=== PATIENT | male | born 1980 | race Caucasian/White ===

== ENCOUNTER → 2016-04-28 | Outpatient (CLI) | payer OTHER ==
[~2016-04-28] VITALS: Ht 177.8 cm; Wt 69.9 kg
[~2016-04-28] MED LIST: ALEVE220 MG PO; ASPIRIN325 PO; BENADRYL25 MG PO; CALCIUM PO; DEPAKOTE500 MG PO; FLORINEF ACETA0.1 MG PO; FOLIC ACID-VIT1 EAC1 PO; HYDROCODON-ACE1 EAC4 PO; HYDROCODONE-AP1 EAC1 PO; HYDROCODONE-AP1 EAC6 PO; LIDOCAINE VISC100 M1 MM; MAG OXIDE PO; MORPHINE SULFAT15 M3 PO; MS CONTIN15 MG PO; MS CONTIN30 MG PO; OXYCODONE-ACET1 EACH PO; PERCOCET 5-3251 EACH PO; PERCOCET PO; PLAVIX 75 MG TA75 MG PO; PROCHLORPER PO; PROPRANOLOL 8080 M1 PO; REMERON15 MG PO; ROXICODONE5 MG PO; SIMVASTATIN20 MG PO; TOPAMAX100 MG PO; TRAZODONE HCL50 MG PO; VITAMIN D2000 UNIT PO
--- NOTE | ~2016-04-28 | HPC ---
[facility] [place] [address] PAIN MANAGEMENT CONSULTATION Name: MARYLINALLENVaughnNIRAV Room #: [facility] [id number] Admission: 04/28/16 Attend Phys: Thomas Azar DO Discharge: Date of : 80 Report #: [id number] THIS REPORT FOR: //name// CC: Thomas Blake DATE OF SERVICE: 04/28/2016 REFERRING PHYSICIAN: Armand Garcia M.D. CHIEF COMPLAINT: Headache and head pain. 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 The patient indicates the pain typically runs around 7/10. He has been stabilized on a dose of medication, but returns today for alteration in therapy due to CDC guidelines changes. He has returned to address ongoing medication therapy. He is denying any side effects of medication, feels medications are beneficial. He wishes to continue therapy as closely to the guidelines as we can obtain. ALLERGIES: IV CONTRAST AGENT. CURRENT MEDICATIONS: Trazodone, oxycodone, MS Contin, cholecalciferol, calcium carbonate, cyanocobalamin, mirtazapine, aspirin, topiramate and simvastatin. SOCIAL HISTORY: The patient continues to smoke. Denies IV or illicit drug use. Uses alcohol daily. He is accompanied by his father. IMAGING DATA: No new imaging available. PHYSICAL EXAMINATION: VITAL SIGNS: Blood pressure 103/77, pulse is 97 and respiratory rate 14 and unlabored. The patient is 100% on room air. Height 5 feet 10 inches tall, weight 154 pounds and BMI calculated 21.1. GENERAL: Well-developed, well-nourished, well-hydrated 35-year-old male appearing stated age. He is placing pain score today is 7/10. HEENT: Normocephalic and atraumatic. Pupils equal, round and reactive to light. Extraocular muscles are intact. Speech is fluent. Dentition poor. EXTREMITIES: Show no clubbing, no cyanosis and no edema. MUSCULOSKELETAL: Palpatory tenderness noted over the temporal area bilaterally, right greater than left. Cervical provocation testing causes no change in overall pain. ASSESSMENT: [address] [address] PAIN MANAGEMENT CONSULTATION Name: NIRAV ROBLEDO Room #: [facility] Molly#: [id number] Admission: 04/28/16 Attend Phys: Thomas Azar DO Discharge: Date of : 80 Report #: [id number] 1. Chronic headaches. 2. Seizure disorder. 3. Opioid dependency. 4. Complicated medical therapy utilizing scheduled medications. 5. Chronic intractable pain. PLAN: 1. The patient returns today in followup visit where we have discussed the need to reduce his opioids to me through CDC guidelines. CDC guidelines recommend 90 morphine equivalents a day for any person receiving high-dose opioids, this is the extent of the medication. I have discussed this with the patient today. Currently, the patient is taking approximately 135 mg morphine equivalents a day that is with the MS Contin and oxycodone. We will adjust the medications to some degree to reduce the patient's opioid use to comply with CDC guidelines. 2. The patient was provided a script and MS Contin 30 mg dose 1 tab p.o. b.i.d., total of 60 mg morphine equivalents. To this, we will add the oxycodone. We will trial this for 1 month and if the patient is doing well with this therapy, we will continue therapy at this level. Otherwise, we will look towards placing the patient on either Embeda or Silvia once a day, morphine dose in the morning, which will provide 24-hour coverage. We will determine if this is necessary at next visit. 3. The patient was provided prescription of oxycodone 5 mg dose 1 to 2 tabs every 8 hours p.r.n., given #180, releases of today only. We will see the patient back for followup visit in 1 month to discuss efficacy of the change. We have now reached the CDC guidelines of 90 morphine equivalents a day with the patient's medications. 4. If the patient finds this medication dosing change tolerable and he is having no side effects and pain is well controlled, we can provide the patient with refills of medications at our next visit. He will contact us to advise as whether or not this plan is effective. By: [id number] Thomas Azar DO /nt
== END ==
LOC: PAIN 07:02
DX: R51 Headache (principal); G40.909 Epilepsy, unspecified, not intractable, without status epilepticus; F11.20 Opioid dependence, uncomplicated; F17.210 Nicotine dependence, cigarettes, uncomplicated; I10 Essential (primary) hypertension; Z79.82 Long term (current) use of aspirin

== ENCOUNTER → 2016-05-27 | Outpatient (CLI) | payer OTHER ==
[~2016-05-27] VITALS: Ht 177.8 cm; Wt 71.2 kg
--- NOTE | ~2016-05-27 | HPC ---
[facility] [place] [address] [place] [address] PAIN MANAGEMENT CONSULTATION Name: NIRAV ROBLEDO Lesley [facility] #[facility] [id number] Admission: 05/27/16 Attend Phys: Thomas Azar DO Discharge: Date of : 80 Report #: [id number] THIS REPORT FOR: //name// CC: Thomas Blake MD DATE OF SERVICE: 05/27/2016 REFERRING PHYSICIAN: Armand Garcia MD. CHIEF COMPLAINT: Headache and head pain. 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 The patient typically has pain rating anywhere from 5-7/10. He returns today in followup visit for continuation of medication therapy. We have adjusted his medications to comply with CDC guidelines. He is now below 90 morphine equivalents a day. His pain is fairly well controlled. He is relying more on his oxycodone now, that we have reduced his MS Contin, but still remains in the 90 morphine equivalent range. He returns today requesting refills on medication for the next 3 months. ALLERGIES: IV CONTRAST AGENT. CURRENT MEDICATIONS: Oxycodone 10 mg 3 times a day, MS Contin 30 mg twice a day, trazodone 50 mg p.o. at bedtime, Remeron 15 mg p.o. at bedtime, aspirin 325 mg per day, Topamax 200 mg once a day, simvastatin 20 mg once a day. SOCIAL HISTORY: The patient continues to smoke. He denies any IV or illicit drug use. He uses daily alcohol. He is accompanied by his father. IMAGING: No new imaging available. PHYSICAL EXAMINATION: VITAL SIGNS: Blood pressure 123/74, pulse 83, respiratory rate 14, unlabored. The patient is 100% on room air, height 5 feet 10 inches tall, weight 157 pounds, BMI calculated 22.5. GENERAL: Well developed, well nourished, and well hydrated. A 35-year-old male, appears stated age, placing current pain score at 5/10. HEENT: Normocephalic and atraumatic. Pupils are equal, round, and reactive. Dentition poor. Speech is fluent. NEUROLOGIC: Cranial nerves are grossly intact. EXTREMITIES: Show no clubbing, no cyanosis, no edema. MUSCULOSKELETAL: The patient has some tenderness to palpation over the temporal [facility] [address] [place] [address] PAIN MANAGEMENT CONSULTATION Name: NIRAV ROBLEDO Lesley Room #: [facility]#: [id number] Admission: 05/27/16 Attend Phys: Thomas Azar DO Discharge: Date of : 80 Report #: [id number] regions, right greater than left. There is a noted well-healed surgical scar. Cervical provocation testing causes no change in overall pain. ASSESSMENT: 1. Chronic headaches. 2. Seizure disorder. 3. Opioid dependency. 4. Complicated medical therapy utilizing scheduled medications. 5. Chronic intractable pain. PLAN: 1. The patient returns today in followup visit for medication management. He feels medications are working beneficially even with the slight reduction in therapy over the last month. He has requested refills on medication to be provided for 3 months' worth of therapy. He is denying any side effects to medication. He does note he has relied more heavily on his oxycodone, but still remains with the level of dosing that we have provided. He returns today for refills of medication. 2. The patient was provided a prescription of MS Contin 30 mg dose 1 tab p.o. b.i.d. I have given the patient #60, releases of today, 4 weeks from today, and 8 weeks from today, 3 months' worth of medication. 3. The patient was provided a prescription of oxycodone 5 mg dose 1-2 tabs p.o. q. 8 hours p.r.n., #180 releases of today, 4 weeks from today, and 8 weeks from today. 4. The patient will return to our clinic in 3 months for medication management. Otherwise, earlier if he needs to make adjustments in therapy. By: [id number] Thomas Azar DO /nt
[2016-05-27 08:23] VITALS: BP 123/74
== END | disposition home or self-care (01) ==
LOC: PAIN 06:44
DX: R51 Headache (principal); G89.29 Other chronic pain; G40.909 Epilepsy, unspecified, not intractable, without status epilepticus; F11.20 Opioid dependence, uncomplicated; F17.210 Nicotine dependence, cigarettes, uncomplicated

== ENCOUNTER → 2016-09-22 | Outpatient (CLI) | payer OTHER ==
[~2016-09-22] VITALS: Ht 177.8 cm; Wt 67.1 kg
--- NOTE | ~2016-09-22 | HPC ---
[facility] [address] [place] [address] PAIN MANAGEMENT CONSULTATION Name: NIRAV ROBLEDO Room #: REG [facility]#: [id number] Admission: 09/22/16 Attend Phys: Thomas Azar DO Discharge: Date of : 80 Report #: [id number] THIS REPORT FOR: //name// CC: Thomas Blake MD DATE OF SERVICE: 09/22/2016 DATE OF SERVICE: 09/22/2016 CHIEF COMPLAINT: Head pain and headache. HISTORY OF PRESENT ILLNESS: As you know, the patient is a 36-year-old male referred to our service by his neurosurgeon, Dr. Armand Garcia for evaluation for headache pain secondary to variable intracranial treatable spinal fluid pressures. The patient indicates pain today at the level of 4/10. States that light noise weather exacerbate symptoms; medications, cold environment and dark environments and sleep appear to improve pain. He returns today in followup visit for medication management. Currently, he is taking MS Contin 30 mg twice a day, total of 60 mg morphine equivalents and taking oxycodone 10 mg 3 times a day, a total of 45 morphine equivalents equalling 105 morphine equivalents per day. He returns today for adjustment in his medications to comply with CDC 90 morphine equivalents maximum. ALLERGIES: IV CONTRAST AGENT. CURRENT MEDICATIONS: Oxycodone 10 mg 3 times a day, MS Contin 30 mg twice day, trazodone 50 mg p.o. at bedtime, Remeron 15 mg p.o. at bedtime, aspirin 325 mg per day, Topamax 200 mg once a day, simvastatin 20 mg once a day. SOCIAL HISTORY: The patient continues to smoke. Denies IV or illicit drug use. Denies any chronic alcohol use. He is accompanied by his father present in room today. IMAGING: No new imaging available. PHYSICAL EXAMINATION: VITAL SIGNS: Blood pressure 115/81, pulse 86, respiratory rate 14, unlabored. The patient is 100% on room air, height 5 feet 10 inches tall, weight 148 pounds, BMI calculated 21.2. GENERAL: Well developed, well nourished, well hydrated 36-year-old male, appearing his stated age. Pain is rated around 4/10. HEENT: Normocephalic, atraumatic. Pupils equal, round, reactive to light. Dentition is poor, but noted new dentures. [address] [address] PAIN MANAGEMENT CONSULTATION Name: MEENANIRAV Room #: REG [facility]#: [id number] Admission: 09/22/16 Attend Phys: Thomas Azar DO Discharge: Date of : 80 Report #: [id number] EXTREMITIES: Show no clubbing, no cyanosis, no edema. MUSCULOSKELETAL: Tenderness to palpation is again noted over the paraspinal musculature of the cervical region. No spinous process tenderness. Well-healed surgical scar over the calvarium. ASSESSMENT: 1. Chronic headaches. 2. Seizure disorder. 3. Opioid dependency. 4. Complicated medical therapy utilizing scheduled medications. 5. Chronic intractable pain. PLAN: 1. The patient returns today in followup visit for adjustments in medication therapy. The patient returns today to comply with CDC guidelines of 90 morphine equivalents of medicine per day. The patient is currently at 105 morphine equivalence and we need to adjust downward to comply with new CDC regulations. The patient denies any new changes in his medical history over the past 3 months. He has been doing fairly well. He does typically good in the summer time and has been noted to be doing fairly well today. He returns today for the adjustments in therapy. 2. The patient was provided prescription MS Contin 30 mg dose 1 tab p.o. b.i.d., given the patient #60 tablets, releases of today, 4 weeks from today, 8 weeks from today, 3 months' worth of medication. 3. The patient will have reduction in his oxycodone, reducing to 5 mg 4 times a day. This will give 120 tablets of the 5 mg oxycodone dose. He is to take this only when pain is intolerable. I have given him releases of today, 4 weeks from today, 8 weeks from today. The combination of the oxycodone with the MS Contin equals less than the 90 morphine equivalents required by new CDC guidelines complying with their request. 4. We will see the patient back in followup visit in 3 months, make further adjustments in medication therapy if necessary and to review efficacy of treatment. <ELECTRONICALLY SIGNED> By: Thomas Azar DO 09/28/16 0804 [id number] Thomas Azar DO /nt
[2016-09-22 08:21] VITALS: BP 115/81
== END ==
LOC: PAIN 07:10
DX: G89.29 Other chronic pain (principal); G44.89 Other headache syndrome; F11.20 Opioid dependence, uncomplicated; Z91.09 Other allergy status, other than to drugs and biological substances; Z79.82 Long term (current) use of aspirin; F17.210 Nicotine dependence, cigarettes, uncomplicated

== ENCOUNTER → 2017-05-04 | Outpatient (CLI) | payer OTHER ==
[~2017-05-04] VITALS: Ht 177.8 cm; Wt 62.5 kg
--- NOTE | ~2017-05-04 | HPC ---
[facility] [place] [address] [place] [address] PAIN MANAGEMENT CONSULTATION Name: NIRAV ROBLEDO Room #: REG [facility].#: [id number] Admission: 05/04/17 Attend Phys: Thomas Azar DO Discharge: Date of : 80 Report #: [id number] THIS REPORT FOR: //name// CC: Thomas Blake DATE OF SERVICE: 05/04/2017 CHIEF COMPLAINT: Head pain and headache. HISTORY OF PRESENT ILLNESS: As you know, the patient is a 36-year-old male referred to our service by his neurosurgeon, Dr. Armand Garcia for chronic headaches secondary to variable intracranial pressures. The patient has been started on medication in the form of opioid therapy. He takes MS Contin 30 mg twice a day and oxycodone 5 mg up to 3 times a day for pain control. He states this is working well despite the elevated pain score of 4-5/10. He indicates that light noise and weather changes exacerbate symptoms. Dark environment, quiet environment, sleep and medication appear to improve pain. He returns today requesting refill on medications. He is denying new injury, new trauma or any changes in medical history since our last visit. ALLERGIES: IV CONTRAST AGENT. CURRENT MEDICATIONS: MS Contin 30 mg twice a day, oxycodone 5 mg 3 times a day, trazodone 50 mg p.o. at bedtime, Remeron 15 mg p.o. at bedtime, aspirin 325 mg per day, Topamax 200 mg once a day, simvastatin 20 mg per day. SOCIAL HISTORY: The patient denies smoking. Denies IV or illicit drug use. Denies any chronic alcohol use. He is accompanied by his mother who was present in room today. IMAGING: No new imaging available. PQRS: The patient has no known osteoarthritis or rheumatoid arthritis. He is reporting pain intensity somewhere between 4-5/10. He is not a fall risk, has not had a fall in last 3 months. He does report no dizziness at appointment today. He is not on blood thinners. He is treated for hypertension with medication. He has been on opioids longer than 6 weeks and he has contracted to [facility]. He has a low risk for opioid abuse. He rates his pain impact score as 36/70. PHYSICAL EXAMINATION: VITAL SIGNS: Blood pressure 114/78, pulse 103, respiratory rate 14, unlabored. The patient is 98% on room air. Height 5 feet 10 inches tall, weight 137.[address] [place] [address] PAIN MANAGEMENT CONSULTATION Name: NIRAV ROBLEDO Room #: REG [facility].#: [id number] Admission: 05/04/17 Attend Phys: Thomas Azar DO Discharge: Date of : 80 Report #: [id number] pounds, BMI calculated 19.8. GENERAL: Well-developed, well-nourished, well-hydrated, thin 36-year-old male who appears his stated age. He is placing current pain score 4-5/10. HEENT: Normocephalic, atraumatic. Pupils are equal, round, reactive to light. Dentition remains poor. EXTREMITIES: Show no clubbing, no cyanosis, no edema. MUSCULOSKELETAL: The patient does have some tenderness to palpation over the cervical region. No specific trigger points, no spinous process tenderness. Well-healed surgical scars over the calvarium. Cervical provocation testing causes no joint change in overall pain. ASSESSMENT: 1. Chronic headaches. 2. Seizure disorder. 3. Opioid dependency. 4. Complicated medical therapy utilizing scheduled medications. 5. Chronic intractable pain. PLAN: 1. The patient has returned today in followup visit for medication management. We have had long discussions in the past about the use of opioids for headache pain. This appears to be working well in this patient's case. He states that his neurosurgeon, Dr. Garcia has indicated that no surgical option at present will improve his symptoms and that he recommends continuing therapy. We did discuss with the patient the CDCs recommended guidelines for remaining under the 90 morphine equivalents total per day. At present, he is taking approximately 80 morphine equivalents a day total. We did discuss the possibility that this may reduce further in the very near future as there has been suggestion of a reduction from 90 morphine equivalents a day to 50 morphine equivalents a day. We will discuss this at our next visit if this does become a reality. At present, the patient appears to be doing well. He is denying side effects to medication and wishes to continue therapy. The patient's improvement is agreed upon by his mother who is present in room today, indicating that his function is greatly improved while on medication. 2. The patient was provided prescription MS Contin 30 mg dose 1 tab p.o. b.i.d., #60, releases of today, 4 weeks from today, 8 weeks from today, 3 months' worth of medication. 3. The patient was provided prescription of oxycodone 5 mg dose 1 tab p.o. q.i.d., #120, releases of today, 4 weeks from today, 8 weeks from today, 3 months' worth of medication. I have advised the patient to begin reduction of the use of this medication if at all possible. This immediate release formulation needs to be weaned lower over the next couple of months in preparation for reduction in overall opioid usage. 4. The patient will submit to a drug screen today. Drug screening is part of our process of confirming the patient is utilizing medication appropriately. The patient will submit to this today. He has also renewed his contract for [facility] [address] [place] [address] PAIN MANAGEMENT CONSULTATION Name: MARYLINALLENVaughnNIRAV Room #: REG [facility] Tatyana.#: [id number] Admission: 05/04/17 Attend Phys: Thomas Azar DO Discharge: Date of : 80 Report #: [id number] opioids with [facility]. 5. We will see the patient back in followup visit in 3 months, make adjustments in medication as necessary. <ELECTRONICALLY SIGNED> By: Thomas Azar DO 05/05/17 0736 [id number] Thomas Azar DO /nt
[2017-05-04 09:39] VITALS: BP 114/78
== END ==
LOC: PAIN 07:34
DX: G89.4 Chronic pain syndrome (principal); R56.9 Unspecified convulsions; Z79.891 Long term (current) use of opiate analgesic

== ENCOUNTER → 2017-08-04 | Outpatient (CLI) | payer OTHER ==
[~2017-08-04] VITALS: Ht 177.8 cm; Wt 62.6 kg
--- NOTE | ~2017-08-04 | HPC ---
[facility] [place] [address] [place] [address] PAIN MANAGEMENT CONSULTATION Name: NIRAV ROBLEDO Room #: REG [facility] MDenise.#: [id number] Admission: 08/04/17 Attend Phys: Thomas Azar DO Discharge: Date of : 80 Report #: [id number] THIS REPORT FOR: //name// CC: Thomas Blake DATE OF SERVICE: 08/04/2017 REFERRING PHYSICIAN: Armand Garcia MD CHIEF COMPLAINT: Headache secondary to variable intracranial pressures. HISTORY OF PRESENT ILLNESS: As you know, the patient is a 37-year-old male with longstanding history of headache and head pain due to variable intracranial pressures. The patient is seen by Dr. Armand Garcia and adjustments were made in the patient's ventriculoperitoneal shunt periodically to alleviate symptoms. He returns today in followup visit for medication management. He has been utilizing MS Contin twice a day, utilizing oxycodone p.r.n. for pain control and states his medications are working beneficially. He returns today in followup visit to review recent urine drug screen and to discuss continuation of medication therapy. The patient denies any side effects of somnolence, decreased mental acuity, disorientation, confusion with therapy. He is placing pain score no greater than 4-5/10 today. ALLERGIES: IV CONTRAST AGENT. CURRENT MEDICATIONS: MS Contin 30 mg twice a day, oxycodone 5 mg 3 times a day, trazodone 50 mg p.o. at bedtime, Remeron 15 mg p.o. at bedtime, aspirin 325 mg per day, Topamax 200 mg once a day, and simvastatin 20 mg per day. SOCIAL HISTORY: The patient denies smoking. Denies IV or illicit drug use. Denies any chronic alcohol use. He is accompanied by his father who is present in room today. PQRS: The patient has no osteoarthritis or rheumatoid arthritis. He is reporting pain around 4-5/10. He is not a fall risk, has not had a fall in the last 3 months. He does report some dizziness and disorientation periodically. He is not treated with anticoagulant. He is treated for hypertension. He has been on opioids for greater than 6 weeks and under contract with [facility]. His risk for opioid abuse is low to medium. PHYSICAL EXAMINATION: GENERAL: Well-developed, well-nourished, well-hydrated, thin 37-year-old male, appears older than stated age, placing current pain score 4-5/10. HEENT: Normocephalic, atraumatic. Pupils are equal, round, reactive to light. [address] [address] PAIN MANAGEMENT CONSULTATION Name: MEENANIRAV MELANI Room #: REG [facility].#: [id number] Admission: 08/04/17 Attend Phys: Thomas Azar DO Discharge: Date of : 80 Report #: [id number] Extraocular muscles are intact. Speech fluent. NEUROLOGIC: Cranial nerves 2-12 grossly intact. Dentition is poor. EXTREMITIES: Show no clubbing, no cyanosis, and no edema. MUSCULOSKELETAL: The patient does have some tenderness to palpation over the cervical and occiput area, no spinous process tenderness. Well-healed surgical scars over the calvarium due to changes in shunt placement. Cervical provocation testing is met with only increasing pain with rotation and extension. ASSESSMENT: 1. Chronic headache. 2. Seizure disorder. 3. Opioid dependency. 4. Complicated medical therapy utilizing scheduled medications. 5. Chronic intractable pain. PLAN: 1. The patient returns today in followup visit requesting refill on medications. He states the medications are working beneficially for pain control. The patient and I did spend some time today reviewing his recent drug screen, it shows positive for morphine and morphine metabolite, shows negative for oxycodone. The patient indicates that he continues to take his oxycodone on an as needed basis per our direction. He indicates that there are times when he does not take any oxycodone for days at a time, this may be the reason why his urine drug screen is negative at this time, we will give the patient benefit of the doubt, but I have advised the patient that if he shows negative for medications written for his ongoing pain issues at our next visit that changes will be necessary. We have encouraged the patient to utilize the oxycodone on an as needed basis, but if it is not necessary, we would like to discontinue its use. 2. The patient was provided a prescription of MS Contin 30 mg dose 1 tab p.o. b.i.d., total of 60 morphine equivalents a day. I advised the patient to take the medication as directed. I have given him release dates of today, 4 weeks from today, 8 weeks from today, 3 months' worth of medication. I have cautioned the patient as well as his father in the room today to take this appropriately, they are monitoring the patient's use, both his mother and father. 3. The patient was provided a prescription of oxycodone 5 mg dose 1 tab p.o. q.6-8 hours p.r.n. for pain, I have given the patient #120, I advised him to take the medication as necessary, he is not to take the medication prophylactically. He was given #120, release dates of today, 4 weeks from today, 8 weeks from today. The patient was advised a total medication at 20 mg equals at 30 mg morphine equivalents, a total of 90 morphine equivalents maximum he can receive based on recent CDC guidelines. We will adjust his medications at followup visit. [facility] [address] [place] [address] PAIN MANAGEMENT CONSULTATION Name: NIRAV ROBLEDO Room #: REG [facility] Tatyana.#: [id number] Admission: 08/04/17 Attend Phys: Thomas Azar DO Discharge: Date of : 80 Report #: [id number] 4. We will see the patient back in followup visit 3 months from today for ongoing medication management. By: [id number] Thomas Azar DO /nt
[2017-08-04 08:13] VITALS: BP 117/82
== END ==
LOC: PAIN 06:57
DX: G40.909 Epilepsy, unspecified, not intractable, without status epilepticus (principal); G89.4 Chronic pain syndrome; R51 Headache; F11.20 Opioid dependence, uncomplicated; Z79.899 Other long term (current) drug therapy

== ENCOUNTER → 2017-11-17 | Outpatient (CLI) | payer OTHER ==
[~2017-11-17] VITALS: Ht 177.8 cm; Wt 61.2 kg
--- NOTE | ~2017-11-17 | HPC ---
[facility] [place] [address] PAIN MANAGEMENT CONSULTATION Name: MEENANIRAV POLO Room #: REG [facility].#: [id number] Admission: 11/17/17 Attend Phys: Idalmis Gamez Discharge: Date of : 80 Report #: [id number] THIS REPORT FOR: //name// CC: Idalmis Gamez Virgilio Blake DATE OF SERVICE: 11/17/2017 CHIEF COMPLAINT: Headache secondary to variable intracranial pressures. HISTORY OF PRESENT ILLNESS: As you know, this 37-year-old male with longstanding history of headaches and head pain due to intracranial pressures. The patient was seen by Dr. Armand Garcia in the past for his ventriculoperitoneal shunt. He returns today for medical management. States that he has morning headaches daily that get better as the day progresses. It is a dull achy pain that is sensitive to light, noise, weather changes and improves with his medication, a dark environment or sleep. He uses his medication daily, and they say that they work effectively. He returns for a followup visit today. He states no side effects from his medicine such as constipation or daytime somnolence, decreased mental acuity. He places his pain today at 3/10. ALLERGIES: IV CONTRAST DYE. MEDICATIONS: Oxycodone 5 mg, morphine sulfate 30 mg, trazodone 100 mg, aspirin 325, Topamax 100 mg 2 tablets at bedtime, simvastatin 20 mg. SOCIAL HISTORY: The patient denies smoking on a daily basis. He tells me one cigarette about every 6 weeks. For alcohol use, he tells me he takes about 3 shots of alcohol about every 2 weeks and no illicit drug use. He is accompanied today by his father who he spends most of his time with. PQRS: The patient's height 5 feet 10 inches, weight 135, BMI 19.4. VITAL SIGNS: Blood pressure is 104/70, pulse 95, respirations 16, oxygen is 96%. No history of osteoarthritis or rheumatoid arthritis. Again, his pain score today is 3/10. He is not a fall risk. He does not need help with walking or standing and has not fallen in the last 3 months with no dizziness. The patient is on no blood thinners and denies a history of hypertension. He does have opioid agreement since he has been on opioid therapy longer than 6 weeks. His risk assessment tool is low. His functional assessment is 41/70. Again, no recreational drug use. Very rare tobacco use and alcohol use every 2-4 weeks per the patient. [address] [address] PAIN MANAGEMENT CONSULTATION Name: NIRAV ROBLEDO Room #: REG [facility]#: [id number] Admission: 11/17/17 Attend Phys: Idalmis Gamez Discharge: Date of : 80 Report #: [id number] PHYSICAL EXAMINATION: GENERAL: Well-developed, well-nourished 37-year-old male who appears his stated age. HEENT: Normocephalic, atraumatic. Pupils equal, reactive to light. Speech is fluent. Extraocular muscles intact. NEUROLOGICAL: Cranial nerves 2-12 intact. EXTREMITIES: No clubbing, no cyanosis, no edema noted. MUSCULOSKELETAL: Does have tenderness over the occipital areas. He does have a well-healed surgical scar. ASSESSMENT: 1. Chronic headaches. 2. Seizure disorder. 3. Opioid dependency. 4. Complicated medical therapy utilizing scheduled medications. 5. Chronic intractable pain. [place] tra Pdmp and K-TRACS available and no deviations noted at this time. We reviewed the fact that opiate medications are being used to provide analgesia adequate to support activities of daily living, not attempting to achieve a specific pain score on the 0-10 Visual Analog Scale. The current opiate medications are providing sufficient analgesia to allow the patient to participate in activities of daily living. The patient is not exhibiting any aberrant behavior suggestive of drug diversion. The patient is not having any adverse reactions to medications. The patient is not suffering from daytime somnolence or mental acuity changes. The patient is managing opiate-induced constipation with appropriate pflf-uoo-cjvojwb agents and dietary considerations. The patient was counseled on concern for caution with operating a motor vehicle while using opiate medications. A physical exam was performed and the patient's functional status was evaluated. All patients with back pain were advised against the bed rest greater than 4 days and were advised to return to normal activities. Pain score assessment was noted and the treatment plan was reviewed with the patient. All current medications, both prescribed and OTC were reviewed and reconciled on the electronic medical record. Tobacco screening was accomplished and smoking cessation was advised when indicated. BMI was noted and diet/exercise modification was recommended for all patients following outside normal parameters. I reviewed with the patient today their responsibilities to safeguard prescription medications, reviewed their responsibility to utilize medications only as prescribed by the physician. They are to seek and receive pain medications only from 1 physician group ([facility]). They are to use 1 pharmacy and keep the clinic informed if they change pharmacies. Their [facility] [address] [place] [address] PAIN MANAGEMENT CONSULTATION Name: NIRAV ROBLEDO Room #: REG [facility]#: [id number] Admission: 11/17/17 Attend Phys: Idalmis Gamez Discharge: Date of : 80 Report #: [id number] responsibilities include making followup visits in a timely fashion and to avoid abrupt discontinuation of medication usage. Their responsibilities further include bringing their medications (bottles from the pharmacy with residual pills) to the visit for possible confirmation of pill counts and the patient understands it is their responsibility to submit to random drug screens to ensure both that the medications prescribed are present, and that no other controlled substances are present. All prescriptions provided today were generated electronically. PLAN: 1. The patient returns to clinic today for followup visit for requesting refills. He states the medications are working to control his pain. I did spend some time today discussing the CDC guidelines and MME requirements of 50 MMEs versus 90 MMEs. The patient does fall into the 90 MMEs and below. Therefore, we will see this patient as I explained to him on an every 2-month basis. He understands this and is agreeable to this plan of care. 2. The patient was prescribed MS Contin 30 mg 1 tablet twice a day, #60, and he was given today's rx and 4 weeks prescriptions. Second medication is oxycodone 5 mg, 1 tablet every 6-8 hours as needed for pain. The patient was given 120 pills. I advised him to take this on the lowest most effective dose. He states he takes 0-4 a day, sometimes not requiring medications. The patient was advised of his total MME equivalent dose of 90 morphine equivalents based on the CDC guidelines. We made these adjustments for every 2 months, and we will see him in followup in 2 months. The patient is agreeable with this with his father for ongoing opioid medical management. The patient was seen today in collaboration with Dr. Thomas Azar. <ELECTRONICALLY SIGNED> By: Idalmis Gamez 11/18/17 1322 [id number] Idalmis Gamez /nt
[2017-11-17 08:20] VITALS: BP 104/70
== END ==
LOC: PAIN 06:43
DX: R51 Headache (principal); G40.909 Epilepsy, unspecified, not intractable, without status epilepticus; G89.4 Chronic pain syndrome; F11.20 Opioid dependence, uncomplicated; Z79.899 Other long term (current) drug therapy

== ENCOUNTER → 2018-01-26 | Outpatient (CLI) | payer OTHER ==
[~2018-01-26] VITALS: Ht 177.8 cm; Wt 59.9 kg
--- NOTE | ~2018-01-26 | HPC ---
[facility] [place] [address] [place] [address] PAIN MANAGEMENT CONSULTATION Name: NIRAV ROBLEDO Room #: REG [facility].#: [id number] Admission: 01/26/18 Attend Phys: Idalmis Gamez Discharge: Date of : 80 Report #: [id number] THIS REPORT FOR: //name// CC: Idalmis Gamez Virgilio Leroymons DATE OF SERVICE: 01/26/2018 CHIEF COMPLAINT: Headache secondary to variable increased intracranial pressures. HISTORY OF PRESENT ILLNESS: This is a 37-year-old gentleman with a longstanding history of headaches and head pain due to intracranial pressures. He does have a ventriculoperitoneal shunt that is managed by Dr. Garcia. He is here for medication management. He tells me that he has been doing fairly well, though he did have a significant migraine on Thanksgiving that he was in bed all day for. Today, he rates his pain score at 5/10 though and tells me that the weather, light and noise makes it worse, but the medications are very helpful as well as sleepy. He denies any constipation or daytime sleepiness. He tells me he takes 0-3 of his OxyIR 5 mg a day, which is a slight decrease of the 4 a day that he was taking. ALLERGIES: IV DYE. CURRENT MEDICATIONS: Oxycodone 5 mg, morphine sulfate 30 mg b.i.d., trazodone 100 mg at bedtime, Remeron 15 mg at bedtime, aspirin 325 mg daily, Topamax 100 mg 2 at bedtime and simvastatin 20 mg at bedtime. PQRS: The patient denies rheumatoid arthritis or osteoarthritis. Height is 5 feet 10 inches, weight is 132. BMI is 18.9. Vital signs: Blood pressure 101/69, pulse is 102, respirations 16, oxygen sat is 96%. Pain score is 5/10. He denies any dizziness. Does not need help walking or standing, has not fallen in the last 3 months. The patient does not take a blood thinner. He does have a history of hypertension. Opioid signed contract is on the chart due to the fact that he takes opioid therapy greater than 6 weeks. His risk assessment tool is low. His functional assessment is 41/70. The patient's recreational drug use, he denies. He does smoke some cigarettes on Sundays. He does use alcohol about 6 drinks a month. We did check the prescription monitoring system and the patient is filling appropriately and is due for his medications today. He does tell me that he safeguards his medications. PHYSICAL EXAMINATION: GENERAL: This is a well-developed, well-nourished 37-year-old that appears his stated age. His affect is appropriate and he is alert and oriented. HEENT: Normocephalic, atraumatic. Pupils equal and reactive to light. NEUROLOGIC: Speech is fluent. Cranial nerves 2-12 [address] [address] PAIN MANAGEMENT CONSULTATION Name: NIRAV ROBLEDO Room #: REG [facility]#: [id number] Admission: 01/26/18 Attend Phys: Idalmis Gamez Discharge: Date of : 80 Report #: [id number] EXTREMITIES: No clubbing, no cyanosis, no edema noted. MUSCULOSKELETAL: Tenderness at his occipital area of his head where he has a well-healed scar. Otherwise, no other complaints. ASSESSMENT: 1. Chronic headache. 2. Seizure disorder. 3. Opioid dependency. 4. Complex medical therapy utilizing scheduled medicines under opioid agreement. 5. Chronic intractable pain. We reviewed the fact that opiate medications are being used to provide analgesia adequate to support activities of daily living, not attempting to achieve a specific pain score on the 0-10 Visual Analog Scale. The current opiate medications are providing sufficient analgesia to allow the patient to participate in activities of daily living. The patient is not exhibiting any aberrant behavior suggestive of drug diversion. The patient is not having any adverse reactions to medications. The patient is not suffering from daytime somnolence or mental acuity changes. The patient is managing opiate-induced constipation with appropriate dfgm-ehi-wvwhvsr agents and dietary considerations. The patient was counseled on concern for caution with operating a motor vehicle while using opiate medications. A physical exam was performed and the patient's functional status was evaluated. All patients with back pain were advised against the bed rest greater than 4 days and were advised to return to normal activities. Pain score assessment was noted and the treatment plan was reviewed with the patient. All current medications, both prescribed and OTC were reviewed and reconciled on the electronic medical record. Tobacco screening was accomplished and smoking cessation was advised when indicated. BMI was noted and diet/exercise modification was recommended for all patients following outside normal parameters. I reviewed with the patient today their responsibilities to safeguard prescription medications, reviewed their responsibility to utilize medications only as prescribed by the physician. They are to seek and receive pain medications only from 1 physician group ( [facility]). They are to use 1 pharmacy and keep the clinic informed if they change pharmacies. Their responsibilities include making followup visits in a timely fashion and to avoid abrupt discontinuation of medication usage. Their responsibilities further include bringing their medications (bottles from the pharmacy with residual pills) to the visit for possible confirmation of pill counts and the patient understands it is their responsibility to submit to random drug screens to ensure both that the medications prescribed are present, and that no other controlled substances are present. All prescriptions provided today were [facility] [address] [address] PAIN MANAGEMENT CONSULTATION Name: NIRAV ROBLEDO Room #: REG [facility]#: [id number] Admission: 01/26/18 Attend Phys: Idalmis Gamez Discharge: Date of : 80 Report #: [id number] generated electronically. PLAN: The patient was seen today for a refill of his current medications. The patient tells me that he has been doing quite well and has even decreased his oxycodone by an average of about 1 pill. Script was given today for MS Contin 30 mg twice a day, #60 for today and 4-week release; OxyIR 1-2 tablets of 5 mg every 8 hours, quantity 90 for today and 4-week release. This places a patient's MME at 52.5 according to the CDC guidelines. The patient is seen every 2 months. If he does fine in these next 2 months, we may increase him to every 3-month visits due to the fact that he is now at a little lower MME according to the CDC guidelines. In the clinic, guidelines are 50 or below, we get to see him every 3 months. The patient is seen in today with collaboration with Dr. Thomas Azar. <ELECTRONICALLY SIGNED> By: Idalmis Gamez 01/27/18 0838 [id number] [id number] Idalmis Gamez /yolanda
[2018-01-26 08:47] VITALS: BP 101/69
== END ==
LOC: PAIN 06:55
DX: G40.909 Epilepsy, unspecified, not intractable, without status epilepticus (principal); R51 Headache; G89.4 Chronic pain syndrome; F11.20 Opioid dependence, uncomplicated; Z79.899 Other long term (current) drug therapy

== ENCOUNTER → 2018-05-03 | Outpatient (CLI) | payer OTHER ==
[~2018-05-03] VITALS: Ht 177.8 cm; Wt 54.6 kg
[2018-05-03 08:14] VITALS: BP 100/65
--- NOTE | 2018-05-03 08:28 | NUR ---
Pain Clinic Assessment: 1. History of Osteoarthritis: Not Applicable History of Rheumatoid Arthritis: Not Applicable 2. Height: 5 ft. 10 in. 177.8 cm. Weight: 120.4 lb. oz. 54.613 kg. Patient's BMI: 17.3 3. Vital Signs: BP: 100/65 Pulse: 93 Resp: 14 Temp: 02 Sat: 99 ECG Mon: 4. Pain Intensity: 4 5. Fall Risk: Dizziness: N Needs help standing or walking: N Fallen in the last 3 months: Y Fall risk comments: 6. Patient on Blood Thinner: None 7. History of Hypertension: Y 8. Opioid Therapy greater than 6 weeks: Y Opiate Contract Signed: 10/02/15 9. Risk Assessment Tool Provided: low risk-0 10. Functional Assessment Tool: 11. Recreational Drug Use: Never Drug Type: Tobacco Use: Former Smoker Tobacco Type: Amount or Packs/day: How Many Years: Alcohol Use: Yes Frequency: Monthly Quant: 2
--- NOTE | 2018-05-04 07:56 | HPC ---
[facility] [place] [address] PAIN MANAGEMENT CONSULTATION Name: MEENANIRAV POLO [facility] [id number] Admission: 05/03/18 ������������������ Attend Phys: Idalmis Gamez Discharge: ������������������ Date of : 80 Report #: [id number] THIS REPORT FOR: //name// CC: Idalmis Gamez Virgilio Leroymons DATE OF SERVICE: 05/03/2018 CHIEF COMPLAINT: Headaches secondary to variable increased cranial pressure. HISTORY OF PRESENT ILLNESS: This is a very pleasant 37-year-old who returns to the pain clinic today for the history of headaches due to intracranial pressures. He tells me that he has been having significant headaches in the past few weeks due to the weather changes. He tells me that his pain score today is 4/10, because we are between weather cycles, he said he is sure that by the end of the week his head will be hurting quite significantly. He tells me today it is a dull achy pain of 4/10. The medications are very helpful as well as a quiet dark environment. The patient would like a refill today of his morphine and OxyIR, which he finds that are very helpful in controlling his pain. ALLERGIES: CONTRAST DYE. MEDICATIONS: Oxycodone 5 mg 1-2 tablets 3 times a day, morphine sulfate 30 mg b.i.d., trazodone 50 mg at bedtime, mirtazapine 15 mg at bedtime, aspirin 325 mg daily, Topamax 200 mg at bedtime and simvastatin 20 mg at bedtime. PQRS: 1. He denies any rheumatoid arthritis or osteoarthritis. 2. Height is 5 feet 10 inches, weight is 120 and BMI is 17. This is a weight loss from 132 pounds in January. 3. Vital signs: Blood pressure 100/65, pulse 93, respirations 14 and oxygen sat is 99. 4. Pain score is 4/10. 5. Fall risk. Denies dizziness. Does not meet up walking or standing. He has fallen in the last 3 months. 6. The patient is not on any blood thinners. He does have a history of hypertension. 7. Opioid therapy is greater than 6 weeks; therefore, an opioid signed contract is on the chart. 8. Risk assessment tool is low. Functional assessment is 41/70. 9. Recreational drug use, he denies. He is a former smoker and occasionally drinks alcohol. PHYSICAL EXAMINATION: GENERAL: This is a well-developed, thin 37-year-old male who has a [facility] [address] [place] [address] PAIN MANAGEMENT CONSULTATION Name: NIRAV ROBLEDO Room #: REG [facility].#: [id number] Admission: 05/03/18 ������������������ Attend Phys: Idalmis Gamez Discharge: ������������������ Date of : 80 Report #: [id number] decrease in weight since his last visit and appearing gaunt in the face at this visit. He is alert and orientated. HEENT: Normocephalic and atraumatic. Pupils equal, round and reactive. NEUROLOGICAL: Speech is fluent. Cranial nerves 2 through 12 are intact. EXTREMITIES: No clubbing, no cyanosis and no edema. ASSESSMENT: 1. Chronic headaches. 2. Seizure disorder. 3. Opioid dependency. 4. Complex medical management utilizing scheduled medications under written opioid agreement. 5. Chronic intractable pain. We reviewed the fact that opiate medications are being used to provide analgesia adequate to support activities of daily living, not attempting to achieve a specific pain score on the 0-10 Visual Analog Scale. The current opiate medications are providing sufficient analgesia to allow the patient to participate in activities of daily living. The patient is not exhibiting any aberrant behavior suggestive of drug diversion. The patient is not having any adverse reactions to medications. The patient is not suffering from daytime somnolence or mental acuity changes. The patient is managing opiate-induced constipation with appropriate mzek-ivb-mvyhuvm agents and dietary considerations. The patient was counseled on concern for caution with operating a motor vehicle while using opiate medications. A physical exam was performed and the patient's functional status was evaluated. All patients with back pain were advised against the bed rest greater than 4 days and were advised to return to normal activities. Pain score assessment was noted and the treatment plan was reviewed with the patient. All current medications, both prescribed and OTC were reviewed and reconciled on the electronic medical record. Tobacco screening was accomplished and smoking cessation was advised when indicated. BMI was noted and diet/exercise modification was recommended for all patients following outside normal parameters. I reviewed with the patient today their responsibilities to safeguard prescription medications, reviewed their responsibility to utilize medications only as prescribed by the physician. They are to seek and receive pain medications only from 1 physician group ( [facility]). They are to use 1 pharmacy and keep the clinic informed if they change pharmacies. Their responsibilities include making followup visits in a timely fashion and to avoid abrupt discontinuation of medication usage. Their responsibilities further include bringing their medications (bottles from the pharmacy with residual pills) to the visit for possible confirmation of pill counts and the patient understands it is their responsibility to submit to random drug screens to [address] [address] PAIN MANAGEMENT CONSULTATION Name: NIRAV ROBLEDO Room #: REG [facility]#: [id number] Admission: 05/03/18 ������������������ Attend Phys: Idalmis Gamez Discharge: ������������������ Date of : 80 Report #: [id number] ensure both that the medications prescribed are present, and that no other controlled substances are present. All prescriptions provided today were generated electronically. PLAN: 1. We discussed treatment options with this patient today. I questioned the patient about his significant weight loss of 12 pounds since we saw him in his last visit, which is 01/26/2018, so in 3 months, he had lost 12 pounds. The patient tells me that he is just not hungry. He tells me he feels fine, has not seen his primary care doctor regarding this weight loss. I encouraged the patient to call his doctor to see if there are tests that they need to run. We did look past his weight for the past few visits and the patient weighed 135 pounds in November and 138 pounds in April of last year and today, he weighs 120. He is not wearing any less clothing that he normally wears but again the patient states that he feels fine. I did encourage him to call his primary doctor to make an appointment. 2. We will check a buccal drug screen on this patient today. We had not had one in the year on this patient. We try to check them randomly every year. We did check the prescription monitoring system and he is filling appropriately for all of his medications and he tells us that he has taken his medication today. 3. Script given for morphine 30 mg tablets b.i.d., #60 for today and 4-week and oxycodone 5 mg #90 for today and 4 weeks. 4. The patient verbalizes understanding. He will follow up with his primary care doctor and make appointment to see us in 2 months. 5. Care given in collaboration today with Dr. Thomas Azar. ��������������������������������������������� <ELECTRONICALLY SIGNED> ���������������������������������������� By: Idalmis Gamez ��������������������������������������������� 05/04/18 0756 [id number] Idalmis Gamez /nt
== END ==
LOC: PAIN 06:51
DX: G40.909 Epilepsy, unspecified, not intractable, without status epilepticus (principal); R51 Headache; G89.4 Chronic pain syndrome; F11.20 Opioid dependence, uncomplicated; Z79.899 Other long term (current) drug therapy

== ENCOUNTER → 2018-07-05 | Outpatient (CLI) | payer OTHER ==
[~2018-07-05] VITALS: Ht 177.8 cm; Wt 56.5 kg
[2018-07-05 08:57] VITALS: BP 116/76
--- NOTE | 2018-07-05 09:03 | NUR ---
Pain Clinic Assessment: 1. History of Osteoarthritis: Not Applicable History of Rheumatoid Arthritis: Not Applicable 2. Height: 5 ft. 10 in. 177.8 cm. Weight: 124.6 lb. oz. 56.518 kg. Patient's BMI: 17.9 3. Vital Signs: BP: 116/76 Pulse: 87 Resp: 14 Temp: 02 Sat: 100 ECG Mon: 4. Pain Intensity: 5 5. Fall Risk: Dizziness: Y Needs help standing or walking: N Fallen in the last 3 months: N Fall risk comments: 6. Patient on Blood Thinner: None 7. History of Hypertension: Y 8. Opioid Therapy greater than 6 weeks: Y Opiate Contract Signed: 10/02/15 9. Risk Assessment Tool Provided: low risk-0 10. Functional Assessment Tool: 11. Recreational Drug Use: Never Drug Type: Tobacco Use: Former Smoker Tobacco Type: Amount or Packs/day: How Many Years: Alcohol Use: Yes Frequency: Quant:
--- NOTE | 2018-07-07 15:14 | HPC ---
[facility] [place] [address] PAIN MANAGEMENT CONSULTATION Name: MARYLINALLENVaughnNIRAV POLO Room #: REG [facility]..#: [id number] Admission: 07/05/18 ������������������ Attend Phys: Idalmis Gamez Discharge: ������������������ Date of : 80 Report #: [id number] THIS REPORT FOR: //name// CC: Idalmis Gamez Virgilio Leroymons DATE OF SERVICE: 07/05/2018 CHIEF COMPLAINT: Headache secondary to variable increased cranial pressure. HISTORY OF PRESENT ILLNESS: This is a very pleasant 37-year-old gentleman who returns to the pain clinic today with his father for his history of headaches due to intracranial pressure issues. He tells me that he had been doing fairly well, though did suffer from a migraine on Wednesday when the weather was changing quite a bit and stayed in bed most of that day. He reports to me that his pain score is 5/10, which is a fairly average score for him. It is a dull aching headache that is worse with the light, noise and weather. If he is in a dark environment and quiet, it is better as well as using his medications. He tells me though he has been out of his oxycodone for several days but he has been continuing to take his morphine, he is actually passed due for his refills today. ALLERGIES: CONTRAST DYE. MEDICATIONS: Oxycodone 5 mg 1-2 tablets 3 times a day p.r.n., morphine sulfate 30 mg b.i.d., trazodone 50 mg p.r.n. at bedtime, mirtazapine 15 mg at bedtime, aspirin, Topamax 200 mg at bedtime and simvastatin 20 mg at bedtime. PQRS: 1. Denies any rheumatoid arthritis or osteoarthritis. 2. Height is 5 feet 10 inches, weight is 124 and BMI is 17.9 and this is up 4 pounds from his last visit 2 months ago. Vital signs: Blood pressure 116/76, pulse is 87, respirations 14 and oxygen sat is 100. 3. Pain score is 5/10. 4. Fall risk. Does complain of dizziness. Does not need help walking or standing. Has not fallen in the last 3 months. 5. The patient is not on any blood thinners. He does have a history of hypertension. 6. Opioid therapy is greater than 6 weeks; therefore, an opioid signed contract is on the chart. His risk assessment tool is low. His functional assessment is 41/70. 7. Recreational drug use, he denies. He is not a smoker and does drink alcohol. We did check the prescription monitoring system. The patient is indeed passed due to fill for his medications and there is a recent drug screen on the chart [address] [address] PAIN MANAGEMENT CONSULTATION Name: NIRAV ROBLEDO Room #: REG CLI Denise.#: [id number] Admission: 07/05/18 ������������������ Attend Phys: Idalmis Gamez Discharge: ������������������ Date of : 80 Report #: [id number] that was appropriate. PHYSICAL EXAMINATION: GENERAL: This is a well-developed, anorexic 37-year-old gentleman who appears his stated age. He has gained 4 pounds since his last visit. He is alert and orientated placed in his pain score today at 5/10. HEENT: Normocephalic and atraumatic. Pupils equal, round and reactive to light. NEUROLOGICAL: Speech is fluent. NEUROLOGICAL: Cranial nerves 2 through 12 are intact. EXTREMITIES: No clubbing, no cyanosis and no edema. ASSESSMENT: 1. Chronic headaches. 2. Seizure disorder. 3. Opioid dependency. 4. Chronic intractable pain. 5. Complex medical management utilizing scheduled medications under terms a written opioid agreement. We reviewed the fact that opiate medications are being used to provide analgesia adequate to support activities of daily living, not attempting to achieve a specific pain score on the 0-10 Visual Analog Scale. The current opiate medications are providing sufficient analgesia to allow the patient to participate in activities of daily living. The patient is not exhibiting any aberrant behavior suggestive of drug diversion. The patient is not having any adverse reactions to medications. The patient is not suffering from daytime somnolence or mental acuity changes. The patient is managing opiate-induced constipation with appropriate liph-onk-pghcyjw agents and dietary considerations. The patient was counseled on concern for caution with operating a motor vehicle while using opiate medications. A physical exam was performed and the patient's functional status was evaluated. All patients with back pain were advised against the bed rest greater than 4 days and were advised to return to normal activities. Pain score assessment was noted and the treatment plan was reviewed with the patient. All current medications, both prescribed and OTC were reviewed and reconciled on the electronic medical record. Tobacco screening was accomplished and smoking cessation was advised when indicated. BMI was noted and diet/exercise modification was recommended for all patients following outside normal parameters. I reviewed with the patient today their responsibilities to safeguard prescription medications, reviewed their responsibility to utilize medications only as prescribed by the physician. They are to seek and receive pain medications only from 1 physician group ([facility]). They are to use [address] [address] PAIN MANAGEMENT CONSULTATION Name: NIRAV ROBLEDO Room #: REG CLMena Barnes#: [id number] Admission: 07/05/18 ������������������ Attend Phys: Idalmis Gamez Discharge: ������������������ Date of : 80 Report #: [id number] pharmacy and keep the clinic informed if they change pharmacies. Their responsibilities include making followup visits in a timely fashion and to avoid abrupt discontinuation of medication usage. Their responsibilities further include bringing their medications (bottles from the pharmacy with residual pills) to the visit for possible confirmation of pill counts and the patient understands it is their responsibility to submit to random drug screens to ensure both that the medications prescribed are present, and that no other controlled substances are present. All prescriptions provided today were generated electronically. PLAN: 1. We discussed treatment options today. We did talk about his weight. He has gained 4 pounds since his last visit. He did talk to his primary care doctor about that. This is his most recent visit, but no changes were made in any of his medications, though the patient is trying to eat more smaller meals throughout the day to try and increase his weight. He denies any constipation. 2. Scripts given today for MS Contin 30 mg, #60 for release today and 4-week and OxyIR 5 mg #90 for release today and 4 weeks. 3. The patient has been out of his oxycodone for several days but feels like he did not go through withdrawal because he did have some morphine left over and therefore that prevented any withdrawal symptoms. I encouraged the patient to make a timely appointment when he feels his last prescription so that does not happen again. 4. The patient seen in collaboration today with Dr. Thomas Azar. ��������������������������������������������� <ELECTRONICALLY SIGNED> ���������������������������������������� By: Idalmis Gamez ��������������������������������������������� 07/07/18 1514 [id number] [id number] Idalmis Gamez /nt
== END ==
LOC: PAIN 06:52
DX: R51 Headache (principal); G89.4 Chronic pain syndrome; G40.909 Epilepsy, unspecified, not intractable, without status epilepticus; Z79.891 Long term (current) use of opiate analgesic

== ENCOUNTER → 2018-09-20 | Outpatient (CLI) | payer OTHER ==
[~2018-09-20] VITALS: Ht 177.8 cm; Wt 55.7 kg
[2018-09-20 08:53] VITALS: BP 102/65
--- NOTE | 2018-09-20 09:04 | NUR ---
Pain Clinic Assessment: 1. History of Osteoarthritis: Not Applicable History of Rheumatoid Arthritis: Not Applicable 2. Height: 5 ft. 10 in. 177.8 cm. Weight: 122.8 lb. oz. 55.702 kg. Patient's BMI: 17.6 3. Vital Signs: BP: 102/65 Pulse: 96 Resp: 14 Temp: 02 Sat: 98 ECG Mon: 4. Pain Intensity: 5 5. Fall Risk: Dizziness: N Needs help standing or walking: N Fallen in the last 3 months: N Fall risk comments: 6. Patient on Blood Thinner: None 7. History of Hypertension: Y 8. Opioid Therapy greater than 6 weeks: Y Opiate Contract Signed: 10/02/15 9. Risk Assessment Tool Provided: low risk-0 10. Functional Assessment Tool: 11. Recreational Drug Use: Never Drug Type: Tobacco Use: Former Smoker Tobacco Type: Amount or Packs/day: How Many Years: Alcohol Use: Yes Frequency: Monthly Quant:
--- NOTE | 2018-09-21 14:03 | HPC ---
[facility] [address] [place] [address] PAIN MANAGEMENT CONSULTATION Name: JOSEPHVaughnNIRAV MELANI Room #: REG [facility] MDenise.#: [id number] Admission: 09/20/18 Attend Phys: Idalmis Gamez Discharge: Date of : 80 Report #: [id number] THIS REPORT FOR: //name// CC: Idalmis Gamez Virgilio Blake DATE OF SERVICE: 09/20/2018 CHIEF COMPLAINT: Headache secondary to variable increased cranial pressure. HISTORY OF PRESENT ILLNESS: This is a very pleasant 38-year-old gentleman who returns to the pain clinic today with his father for his ongoing medication that he uses to treat for his headaches. He reports to me that his pain score is 5/10 today. He said he has had a fairly decent last 2-1/2 months, rating his pain as, I said, a 5 as a dull achy, constant pain, worse with weather changes and noise. He prefers a dark environment and sleep and his medication is very helpful. Denies any problems with constipation. He has lost 2 pounds in the last 2-1/2 months, we continued to monitor his weight every visit and encouraged him to eat better. The patient tells me he did go without some of his medications when he was [place] [facility] [place] days, but he did not go through withdrawal and he was able to manage for a day and a half before he needed his medicines again. ALLERGIES: CONTRAST DYE. CURRENT LIST OF MEDICATIONS: Oxycodone 5 mg p.r.n., MS Contin 30 mg b.i.d., trazodone, Remeron, aspirin, Topamax, and simvastatin. PQRS: 1. He denies any rheumatoid or osteoarthritis. 2. Height is 5 feet 10 inches, weight is 122, BMI is 17. Again, this is down 2 pounds since his last visit. 3. Vital Signs: Blood pressure 102/65, pulse is 96, respirations 14, oxygen sat is 98. 4. Pain score is 5/10. 5. Denies dizziness, does not need help walking or standing, has not fallen in the last 3 months. 6. The patient is not on any blood thinners, does have medicine for hypertension. 7. Opioid therapy greater than 6 weeks. Opioid signed contract is on the chart. Risk assessment tool is low. Functional assessment is 41/70. 8. Recreational drug use, denies, former smoker and occasional use of alcohol. We did check the prescription monitoring system. The patient has actually filled more than a month ago and he has a recent drug screen on the chart that is appropriate for his medication that he does take. [address] [address] PAIN MANAGEMENT CONSULTATION Name: NIRAV ROBLEDO Room #: REG SEGUN Barnes#: [id number] Admission: 09/20/18 Attend Phys: Idalmis Gamez Discharge: Date of : 80 Report #: [id number] PHYSICAL EXAMINATION: GENERAL: This is an anorexic 38-year-old gentleman who appears his stated age. He is down 2 pounds since his last visit. He is alert and orientated, placing his pain score 5/10 today. HEENT: Normocephalic, atraumatic. Pupils equal, round and reactive to light. NEUROLOGICAL: Cranial nerves 2-12 are intact. EXTREMITIES: No clubbing, no cyanosis, no edema. Denies headache currently today. ASSESSMENT: 1. Chronic headache. 2. Seizure disorder. 3. Opioid dependency. 4. Chronic intractable pain. 5. Complex medical management in terms of written opioid agreement. We reviewed the fact that opiate medications are being used to provide analgesia adequate to support activities of daily living, not attempting to achieve a specific pain score on the 0-10 Visual Analog Scale. The current opiate medications are providing sufficient analgesia to allow the patient to participate in activities of daily living. The patient is not exhibiting any aberrant behavior suggestive of drug diversion. The patient is not having any adverse reactions to medications. The patient is not suffering from daytime somnolence or mental acuity changes. The patient is managing opiate-induced constipation with appropriate lzde-udh-rhftprl agents and dietary considerations. The patient was counseled on concern for caution with operating a motor vehicle while using opiate medications. A physical exam was performed and the patient's functional status was evaluated. All patients with back pain were advised against the bed rest greater than 4 days and were advised to return to normal activities. Pain score assessment was noted and the treatment plan was reviewed with the patient. All current medications, both prescribed and OTC were reviewed and reconciled on the electronic medical record. Tobacco screening was accomplished and smoking cessation was advised when indicated. BMI was noted and diet/exercise modification was recommended for all patients following outside normal parameters. I reviewed with the patient today their responsibilities to safeguard prescription medications, reviewed their responsibility to utilize medications only as prescribed by the physician. They are to seek and receive pain medications only from 1 physician group ([facility]). They are to use 1 pharmacy and keep the clinic informed if they change pharmacies. Their responsibilities include making followup visits in a timely fashion and to avoid abrupt discontinuation of medication usage. Their responsibilities further [facility] [address] [place] [address] PAIN MANAGEMENT CONSULTATION Name: NIRAV ROBLEDO Room #: REG SEGUN Barnes#: [id number] Admission: 09/20/18 Attend Phys: Idalmis Gamez Discharge: Date of : 80 Report #: [id number] include bringing their medications (bottles from the pharmacy with residual pills) to the visit for possible confirmation of pill counts and the patient understands it is their responsibility to submit to random drug screens to ensure both that the medications prescribed are present, and that no other controlled substances are present. All prescriptions provided today were generated electronically. PLAN: 1. We discussed treatment options with the patient today. First, we did talk about his diet, encouraged him to eat high caloric foods not just microwaveable meals that are easy so the patient does not continue to lose weight. The patient tells me he does eat several meals a day, though it is not necessarily the most healthy food that he is describing to me. 2. Scripts given today for his MS Contin 30 mg b.i.d., #60 for today and 4-week release and oxycodone IR 5 mg #90 for today and 4-week release. 3. The patient will return in 2 months. According to the CDC guidelines, his morphine mEq is 82; therefore, he is seen every 2 months for medication refill. 4. Dr. Thomas Azar did see the patient as well today and collaborated care. <ELECTRONICALLY SIGNED> By: Idalmis Gamez 09/21/18 1403 [id number] Idalmis Gamez /yolanda
== END ==
LOC: PAIN 06:48
DX: G40.909 Epilepsy, unspecified, not intractable, without status epilepticus (principal); R51 Headache; G89.4 Chronic pain syndrome; F11.20 Opioid dependence, uncomplicated; Z91.048 Other nonmedicinal substance allergy status; Z79.899 Other long term (current) drug therapy

== ENCOUNTER → 2018-11-29 | Outpatient (CLI) | payer OTHER ==
[~2018-11-29] VITALS: Ht 177.8 cm; Wt 56.2 kg
[2018-11-29 08:43] VITALS: BP 104/73
--- NOTE | 2018-11-29 08:59 | NUR ---
Pain Clinic Assessment: 1. History of Osteoarthritis: Not Applicable History of Rheumatoid Arthritis: Not Applicable 2. Height: 5 ft. 10 in. 177.8 cm. Weight: 124.0 lb. oz. 56.246 kg. Patient's BMI: 17.8 3. Vital Signs: BP: 104/73 Pulse: 116 Resp: 14 Temp: 02 Sat: 98 ECG Mon: 4. Pain Intensity: 8 5. Fall Risk: Dizziness: Y Needs help standing or walking: N Fallen in the last 3 months: N Fall risk comments: 6. Patient on Blood Thinner: None 7. History of Hypertension: Y 8. Opioid Therapy greater than 6 weeks: Y Opiate Contract Signed: 10/02/15 9. Risk Assessment Tool Provided: low risk-0 10. Functional Assessment Tool: 11. Recreational Drug Use: Never Drug Type: Tobacco Use: Former Smoker Tobacco Type: Amount or Packs/day: How Many Years: Alcohol Use: Yes Frequency: Quant:
--- NOTE | 2018-12-13 12:47 | HPC ---
[facility] [place] [address] [place] [address] PAIN MANAGEMENT CONSULTATION Name: MEENANIRAV POLO [facility] [id number] Admission: 11/29/18 Attend Phys: Thomas Azar DO Discharge: Date of : 80 Report #: [id number] THIS REPORT FOR: //name// CC: Thomas Blake DATE OF SERVICE: 11/29/2018 CHIEF COMPLAINT: Headache pain secondary to intracranial pressure variability. HISTORY OF PRESENT ILLNESS: As you know, the patient is a 38-year-old male referred to our service originally by Dr. Armand Garcia to treat ongoing variable headache pain secondary to a CSF changes. The patient is known to have an increase in pain with barometric pressure changes. He returns today with increased headache as we have recently had a barometric pressure change. He is now placing pain score at 8/10. Overall, he states that medications are working beneficially for pain control. He returns today requesting refill on medications in the form of MS Contin and oxycodone. He has been able to reduce his oxycodone use to no more than 2 tabs per day, attempting to gain the lowest most effective dose of opioid medication given the current opioid environment in the [place]. He returns today for refill of medications. He is denying side effects of sleepiness, disorientation, confusion, and mental slowing. ALLERGIES: CONTRAST AGENT. CURRENT MEDICATIONS: MS Contin 30 mg twice a day, oxycodone 5 mg twice a day p.r.n., trazodone 50 mg once a day, mirtazapine 15 mg 2 tabs p.o. at bedtime, aspirin 325 mg per day, Topamax 200 mg once a day, and simvastatin 20 mg per day. SOCIAL HISTORY: The patient denies tobacco, alcohol, IV or illicit drug use. He is accompanied by his father present in room today. IMAGING: No new imaging available. PQRS: The patient denies osteoarthritic changes or rheumatoid arthritis. He is placing pain impact at 8/10, not a fall risk, has not had a fall in last 3 months, not on blood thinners. He is treated for hypertension. He is on chronic opioids, has a low opioid addiction potential. Pain impact score 41/70, moderate interference of daily activities secondary to pain. PHYSICAL EXAMINATION: VITAL SIGNS: Blood pressure 104/73, pulse 116, respiratory rate 14 and unlabored. The patient is 98% on room air. Height 5 feet 10 inches tall, weight 124 pounds and BMI calculated 17.8. [place] [address] PAIN MANAGEMENT CONSULTATION Name: NIRAV ROBLEDO Room #: REG [facility].#: [id number] Admission: 11/29/18 Attend Phys: Thomas Azar DO Discharge: Date of : 80 Report #: [id number] GENERAL: Well-developed, well-nourished, well-hydrated 38-year-old male, appears stated age, pain is rated today at 8/10. HEENT: Normocephalic, atraumatic. Noted the patient is edentulous. EXTREMITIES: Show no clubbing, no cyanosis, and no edema. MUSCULOSKELETAL: Upper extremity strength, lower extremity strength equal and symmetrical 5/5, intact to light touch from L1 through S2 dermatomes. ASSESSMENT: 1. Chronic headaches. 2. Chronic seizure disorder. 3. Opioid dependency. 4. Complicated medication management utilizing opioid medications. 5. Chronic intractable pain. PLAN: 1. The patient returns today in followup visit for medication management. He indicates his pain has intensified with changes in weather. It is not unheard of a patient with variable CSF pressures to have changes in pain with barometric pressure changes such as in the spring and the fall in [facility]. This is not on heard of. Adjustments in medications will not be necessary. The patient and I did discuss the continuation of medication management at current dosing as he has been able to reduce his reliance on oxycodone to only 2 tabs per day, but continues to take his MS Contin 30 mg twice a day for a total of 75 morphine equivalents a day, well below CDC is recommended 90 morphine equivalents or no greater. He returns for medication management. 2. We reviewed the fact that opiate medications are being used to provide analgesia adequate to support activities of daily living, not attempting to achieve a specific pain score on the 0-10 Visual Analog Scale. The current opiate medications are providing sufficient analgesia to allow the patient to participate in activities of daily living. The patient is not exhibiting any aberrant behavior suggestive of drug diversion. The patient is not having any adverse reactions to medications. The patient is not suffering from daytime somnolence or mental acuity changes. The patient is managing opiate-induced constipation with appropriate cele-zvg-oabqyoq agents and dietary considerations. The patient was counseled on concern for caution with operating a motor vehicle while using opiate medications. A physical exam was performed and the patient's functional status was evaluated. All patients with back pain were advised against the bed rest greater than 4 days and were advised to return to normal activities. Pain score assessment was noted and the treatment plan was reviewed with the patient. All current medications, both prescribed and OTC were reviewed and reconciled on the electronic medical record. Tobacco screening was accomplished and smoking cessation was advised when indicated. BMI was noted and diet/exercise modification was recommended for all patients following outside normal [facility] [address] [address] PAIN MANAGEMENT CONSULTATION Name: JOSEPHVaughnNIRAV [facility] [id number] Admission: 11/29/18 Attend Phys: Thomas Azar DO Discharge: Date of : 80 Report #: [id number] parameters. I reviewed with the patient today their responsibilities to safeguard prescription medications, reviewed their responsibility to utilize medications only as prescribed by the physician. They are to seek and receive pain medications only from 1 physician group ( [facility]). They are to use 1 pharmacy and keep the clinic informed if they change pharmacies. Their responsibilities include making followup visits in a timely fashion and to avoid abrupt discontinuation of medication usage. Their responsibilities further include bringing their medications (bottles from the pharmacy with residual pills) to the visit for possible confirmation of pill counts and the patient understands it is their responsibility to submit to random drug screens to ensure both that the medications prescribed are present, and that no other controlled substances are present. All prescriptions provided today were generated electronically. 3. The patient was provided prescription of MS Contin 30 mg dose 1 tab p.o. b.i.d. I have given the patient #60 releasing today and 4 weeks from today, 2 months' worth of medication. 4. The patient will reduce his oxycodone from 3 a day to 2 a day and maintain 2 a day at 5 mg dose. He was given #60 tablets, releasing today and 4 weeks from today, 2 months' worth of medication. The patient is attempting to continue to wean off his medication if at all possible to reduce his reliance on opioids. 5. We will see the patient back in followup visit in 2 months for medication management. <ELECTRONICALLY SIGNED> By: Thomas Azar DO 12/13/18 1247 [id number] Thomas Azar DO /nt
== END ==
LOC: PAIN 06:45
DX: R51 Headache (principal); G89.29 Other chronic pain; G40.909 Epilepsy, unspecified, not intractable, without status epilepticus; F11.20 Opioid dependence, uncomplicated

== ENCOUNTER → 2019-02-09 | Outpatient (CLI) | payer OTHER ==
[~2019-02-09] VITALS: Ht 177.8 cm; Wt 54.4 kg
[2019-02-09 12:51] VITALS: BP 101/73
--- NOTE | 2019-02-10 07:22 | HPC ---
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 HISTORY OF PRESENT ILLNESS: This is a 38-year-old gentleman who returns to the pain clinic today with his father for medication refills. 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 This is chronic in nature. He is reporting a pain score of 7/10 today. He reports that he has been out of his oxycodone for about a week. He still had some morphine at home because occasionally he does forget to take both doses. He is due to fill his medications at [place] time, but since our office was closed, the patient was unable to make an appointment until today. He feels that the weather change and noise make his headaches worse. He feels that his medication as well as being in a dark quiet environment are very beneficial. Today, he would like refills of his medications to restart. He has not gone through any withdrawal symptoms because he has been able to continue on his morphine. He denies any problems with constipation or daytime sleepiness. ALLERGIES: CONTRAST DYE. CURRENT LIST OF MEDICATIONS: Oxycodone 5 mg p.r.n., MS Contin 30 mg b.i.d., trazodone, Remeron, aspirin, Topamax and simvastatin. PQRS: 1. He denies any history of osteoarthritis or rheumatoid arthritis. 2. Height is 5 feet 10 inches, weight is 120, BMI is 17. Vital signs 101/73, pulse is 111, respirations 14, oxygen sat is 94. 3. Pain score is 7/10. Does not have any dizziness or has not fallen in the last 3 months. The patient is not on any blood thinners, but does take medicine for hypertension. His opioid therapy is greater than 6 weeks; therefore, an opioid signed contract is on the chart. His risk assessment tool is low. Functional assessment is 41/70. 4. Recreational drug use, he denies. He is a former smoker and does drink alcohol daily. According to the prescription monitoring system, the patient last filled his medications on 12/30/2018; therefore, he is past due to time to fill his [address] [address] PAIN MANAGEMENT CONSULTATION Name: JOSEPHVaughnNIRAV MELANI Room #: REG [facility].#: [id number] Admission: 02/09/19 Attend Phys: Idalmis Gamez Discharge: Date of : 80 Report #: [id number] prescriptions. He has not experienced any withdrawal since he continues to be taking his morphine. According to the CDC guidelines, his morphine mEq is 45 per day. PHYSICAL EXAMINATION: GENERAL: This is an alert and orientated 38-year-old gentleman who appears his stated age, very anorexic, but well-hydrated gentleman. HEENT: Normocephalic, atraumatic. Patient complains of chronic headache in his occipital area. EXTREMITIES: No clubbing, no cyanosis, no edema. MUSCULOSKELETAL: Upper extremity strength is equal and symmetrical as well as his lower extremity. He is intact to light touch at L1 through S2. IMPRESSION: 1. Chronic headache. 2. Chronic seizure disorder. 3. Opioid dependency. 4. Chronic intractable pain. 5. Complicated medical management utilizing opioid medications under opioid agreement. PLAN: 1. We discussed treatment options with the patient today. The patient feels that his headaches were regulated and pain well controlled with his current medications. It is slightly higher today due to his running out of his oxycodone, rating it as 7/10 today. We will continue his MS Contin 30 mg b.i.d. as well as his Oxycodone 5 mg 1-2 tablets, quantity of 60 tablets for a 30-day supply. These medicines will be sent electronically by Dr. Salvador Ortiz to his pharmacy for 2 months. 2. According to the CDC guidelines, the patient falls at 75 MMEs per day. 3. The patient is seen today in collaboration with Dr. Salvador Ortiz. The patient will be seen in 2 months and encouraged to come on a day that Dr. Thomas Azar is here who is his typical pain doctor. <ELECTRONICALLY SIGNED> By: Idalmis Gamez 02/10/19 0722 [id number] Idalmis Gamez /yolanda
== END ==
LOC: PAIN 06:52
DX: G40.909 Epilepsy, unspecified, not intractable, without status epilepticus (principal); R51 Headache; G89.29 Other chronic pain; Z79.891 Long term (current) use of opiate analgesic

== ENCOUNTER → 2019-04-12 | Outpatient (CLI) | payer OTHER ==
[~2019-04-12] VITALS: Ht 177.8 cm; Wt 55.0 kg
[~2019-04-12] MED LIST changes: +REMERON SOLTAB45 MG PO; -REMERON15 MG PO
[2019-04-12 13:49] VITALS: BP 109/77
--- NOTE | 2019-04-12 14:06 | NUR ---
Pain Clinic Assessment: 1. History of Osteoarthritis: NO History of Rheumatoid Arthritis: NO 2. Height: 5 ft. 10 in. 177.8 cm. Weight: 121.2 lb. oz. 54.976 kg. Patient's BMI: 17.4 3. Vital Signs: BP: 109/77 Pulse: 95 Resp: 12 Temp: 02 Sat: 97 ECG Mon: 4. Pain Intensity: 6 5. Fall Risk: Dizziness: Y Needs help standing or walking: N Fallen in the last 3 months: N Fall risk comments: 6. Patient on Blood Thinner: None 7. History of Hypertension: Y 8. Opioid Therapy greater than 6 weeks: Y Opiate Contract Signed: 10/02/15 9. Risk Assessment Tool Provided: low risk-0 10. Functional Assessment Tool: 11. Recreational Drug Use: Never Drug Type: Tobacco Use: Former Smoker Tobacco Type: Amount or Packs/day: How Many Years: Alcohol Use: Yes Frequency: Monthly Quant: 1-2
--- NOTE | 2019-04-13 09:10 | HPC ---
[facility] [place] [address] PAIN MANAGEMENT CONSULTATION Name: NIRAV ROBLEDO Room #: REG [facility] Tatyana.#: [id number] Admission: 04/12/19 Attend Phys: Idalmis Gamez Discharge: Date of : 80 Report #: [id number] THIS REPORT FOR: cc: Virgilio Blake MD, Terry A. 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 HISTORY OF PRESENT ILLNESS: This is a 38-year-old gentleman who returns to the pain clinic today for refill of his medications. He states that today he is having increased pain in his head, rating it as 6/10. He states he did not take his medicine last night because he spent the night at a friend. He did have several drinks since he did not have his medicine with him. He does not ever mix alcohol and opioid medications, but today he does have increased headache. He believes it is from his alcohol consumption. His normal pain is a dull, constant, aching pain, worse with weather changes, light and sound. Today, he is just having a dull, constant headache. He feels that medications and dark environment as well as sleep are very beneficial. Today, he is weighing in at 121, which is a pound and a half increase from his last visit. The patient reports he is trying to eat more higher calorie foods to increase his weight. ALLERGIES: CONTRAST DYE. CURRENT LIST OF MEDICATIONS: Oxycodone 5 mg p.r.n., morphine sulfate 30 mg b.i.d., trazodone, Remeron, aspirin, Topamax, and simvastatin. PQRS: 1. He denies any history of osteoarthritis or rheumatoid arthritis. 2. Height is 5 feet 10 inches, weight is 121. BMI is 17. Vital signs, blood pressure 109/77, pulse 95, respirations 12, oxygen sat is 97. Pain score 6/10. Does have slight dizziness, has not fallen in the last 3 months and does not need help walking. He is not on any blood thinners, but does take medicine for hypertension. His opioid therapy is greater than 6 weeks; therefore, an opioid signed contract is on the chart. Risk assessment is low. Functional assessment is 41/70. Recreational drug use, he denies. He is a former smoker and does drink alcohol. According to the prescription monitoring system, the patient is filling appropriately for his medications, filling them in a timely fashion. His current morphine mEq per day is under 50 MMEs. PHYSICAL EXAMINATION: [facility] [address] [place] [address] PAIN MANAGEMENT CONSULTATION Name: NIRAV ROBLEDO Room #: REG [facility].#: [id number] Admission: 04/12/19 Attend Phys: Idalmis Gamez Discharge: Date of : 80 Report #: [id number] GENERAL: This is alert and orientated 38-year-old gentleman who appears his stated age, placing his current pain score at 6/10. HEENT: Normocephalic, atraumatic. Extraocular eye muscles are intact. Mucous membranes are moist. The patient is edentulous. He does have a headache in his occipital and temporal parts of his head. EXTREMITIES: No clubbing, no cyanosis, no edema. MUSCULOSKELETAL: The patient walks with a normal gait. He is intact to light touch from L1 to S2 dermatomes. His upper and lower extremities are symmetrical. IMPRESSION: 1. Chronic headaches. 2. Chronic seizure disorder. 3. Opioid dependency. 4. Complex medical management utilizing opioid medications. We reviewed the fact that opiate medications are being used to provide analgesia adequate to support activities of daily living, not attempting to achieve a specific pain score on the 0-10 Visual Analog Scale. The current opiate medications are providing sufficient analgesia to allow the patient to participate in activities of daily living. The patient is not exhibiting any aberrant behavior suggestive of drug diversion. The patient is not having any adverse reactions to medications. The patient is not suffering from daytime somnolence or mental acuity changes. The patient is managing opiate-induced constipation with appropriate [id number] agents and dietary considerations. The patient was counseled on concern for caution with operating a motor vehicle while using opiate medications. A physical exam was performed and the patient's functional status was evaluated. All patients with back pain were advised against the bed rest greater than 4 days and were advised to return to normal activities. Pain score assessment was noted and the treatment plan was reviewed with the patient. All current medications, both prescribed and OTC were reviewed and reconciled on the electronic medical record. Tobacco screening was accomplished and smoking cessation was advised when indicated. BMI was noted and diet/exercise modification was recommended for all patients following outside normal parameters. I reviewed with the patient today their responsibilities to safeguard prescription medications, reviewed their responsibility to utilize medications only as prescribed by the physician. They are to seek and receive pain medications only from 1 physician group ([facility]). They are to use 1 pharmacy and keep the clinic informed if they change pharmacies. Their responsibilities include making followup visits in a timely fashion and to avoid abrupt discontinuation of medication usage. Their responsibilities further include bringing their medications (bottles from the pharmacy with residual [facility] [address] [place] [address] PAIN MANAGEMENT CONSULTATION Name: NIRAV ROBLEDO Room #: REG [facility]#: [id number] Admission: 04/12/19 Attend Phys: Idalmis Gamez Discharge: Date of : 80 Report #: [id number] pills) to the visit for possible confirmation of pill counts and the patient understands it is their responsibility to submit to random drug screens to ensure both that the medications prescribed are present, and that no other controlled substances are present. All prescriptions provided today were generated electronically. PLAN: 1. We discussed treatment options with the patient today. The patient reports that he did have several alcoholic beverages last night, but was not taking his medication. I explained to him that we do not want him to use alcohol and medications at the same time, so we are glad to hear that he did not consume those both together. 2. The patient reports he has been trying to gain weight. Yesterday, he did eat several heavy meals. He does have an appetite, though he is still anorexic. He has gained several pounds since our last visit. 3. We will refill his medications of oxycodone 5 mg, #60 as well as morphine sulfate ER 30 mg b.i.d. These will be sent electronically by Dr. Thomas Azar for 2 months. The patient denies any problems with side effects such as constipation or daytime somnolence as a result of these medicines. <ELECTRONICALLY SIGNED> By: Idalmis Gamez 04/13/19 0910 [id number] Idalmis almeida
== END ==
LOC: PAIN 07:15
DX: G40.909 Epilepsy, unspecified, not intractable, without status epilepticus (principal); G89.29 Other chronic pain; Z79.891 Long term (current) use of opiate analgesic; Z79.899 Other long term (current) drug therapy

== ENCOUNTER → 2019-06-13 | Outpatient (CLI) | payer OTHER ==
[~2019-06-13] VITALS: Ht 177.8 cm; Wt 56.7 kg
--- NOTE | ~2019-06-13 | HPC ---
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 HISTORY OF PRESENT ILLNESS: As you know, the patient is a 38-year-old male returning in followup visit for medication management. He states he has been out of his medications for about 3 days, which has led to some increased pain and some potential withdrawal effects. Review of the patient's PDMP would indicate that he should actually have medications available till the 7th of this month and thus he is out early. He returns today in followup visit requesting medication management to address ongoing chronic headaches. He states the combination of medications do work well for pain control, but also admits to the use of illicit substances in the past as well as continued use of alcohol. He returns today to discuss medication management. ALLERGIES: CONTRAST AGENT. CURRENT MEDICATIONS: Oxycodone 5/325 one tab every 8 hours p.r.n. for pain, morphine continuous release 30 mg b.i.d., trazodone 50 mg p.o. at bedtime, mirtazapine 45 mg p.o. at bedtime, aspirin 325 mg per day, Topamax 100 mg 2 tabs per day, simvastatin 20 mg per day. SOCIAL HISTORY: The patient denies tobacco use. He admits to the use of marijuana prior to being counseled not to utilize this medication while on opioid medications. He continues to partake in alcohol despite recommendations to discontinue this activity while on opioids. He is unaccompanied today. IMAGING: No new imaging available. PQRS: The patient denies any history of osteoarthritis or rheumatoid arthritis. He is placing current pain at 6/10. He is not a fall risk, has not had a fall in the last 3 months. He is not on blood thinners, but is treated for hypertension. He is on chronic opioids, but does have a low opioid addiction [address] [address] PAIN MANAGEMENT CONSULTATION Name: NIRAV ROBLEDO [facility] [id number] Admission: 06/13/19 Attend Phys: Thomas Azar DO Discharge: Date of : 80 Report #: [id number] potential based on our assessment tool. Pain impact is 41/70 indicating moderate interference of daily activities secondary to pain. PHYSICAL EXAMINATION: VITAL SIGNS: Blood pressure 123/79, pulse 95 and respiratory rate 14 and unlabored. The patient is 98% on room air. Height 5 feet 10 inches tall, weight is 125 pounds, BMI calculated 17.9. GENERAL: Well-developed, well-nourished, well-hydrated 38-year-old male, appears stated age, pain is rated today at around 6/10. HEENT: Normocephalic, atraumatic. Pupils equal, round, reactive to light. Dentition is poor. EXTREMITIES: Show no clubbing, no cyanosis, and no edema. MUSCULOSKELETAL: There is no palpatory tenderness over the paraspinal musculature, cervical spine. No palpatory tenderness of the cranium. ASSESSMENT: 1. Chronic headaches. 2. Chronic seizure disorder. 3. Opioid dependency. 4. Complex medication management utilizing scheduled medications. 5. Intractable pain. PLAN: 1. The patient returns today in followup visit requesting a refill on medications. He states he ran out of his medications 2 days ago and has been experiencing some increasing pain and also some withdrawal-like effects. I have reviewed the patient's PDMP and based on the fill dates starting 02/09/2019 with the next refill on 03/16/2019 and the next fill on 04/13/2019. The patient should have medication available as he is early on of couple of those days to the point where he should have excess medication. He advises us today that he has misplaced a couple of his medications over the past couple of months and has run short. I have advised the patient that this cannot be tolerated. The patient has to maintain good vigilance with his medication, he cannot lose these medications or misplace these medications as they have a significant addiction potential and cannot fall into the wrong hands. The patient and I discussed this at length today. I have cautioned the patient that early refills will not to be provided and appropriate use of medication must be strictly maintained if he wishes to remain on these medications. He states he will do his best to correct these errors. 2. The patient will submit to a drug screen today. He was unable to provide us a urine drug screen, but did provide us with a buccal drug screen. We will review those findings once they are available. The patient reports there will be no aberrant findings in those testings. 3. The patient was provided a prescription of MS Contin 30 mg dose 1 tab p.o. b.i.d. I have given the patient #60 tablets to release today. We will provide the 4-week prescription to him in written form today and advised only the use of [facility] [address] [place] [address] PAIN MANAGEMENT CONSULTATION Name: NIRAV ROBLEDO Room #: REG [facility]#: [id number] Admission: 06/13/19 Attend Phys: Thomas Azar DO Discharge: Date of : 80 Report #: [id number] the medication as directed. 4. The patient was provided refill prescription of his oxycodone 5 mg dose 1 tab p.o. b.i.d. p.r.n. pain. I have given the patient #60 tablets to release today and 4 weeks from today, 2 months' worth of medication. 5. The patient can contact our clinic next week for the findings of his drug screens to determine if appropriate medications are noted and no aberrant entries. We will be able to review this once it is available and contact the patient in regards to his findings. 6. See the patient back in followup visit in 2 months to discuss medication management. By: [id number] Thomas Azar DO /nt
[2019-06-13 09:07] VITALS: BP 123/79
--- NOTE | 2019-06-13 09:15 | NUR ---
Pain Clinic Assessment: 1. History of Osteoarthritis: NO History of Rheumatoid Arthritis: NO 2. Height: 5 ft. 10 in. 177.8 cm. Weight: 125.0 lb. oz. 56.700 kg. Patient's BMI: 17.9 3. Vital Signs: BP: 123/79 Pulse: 95 Resp: 14 Temp: 02 Sat: 98 ECG Mon: 4. Pain Intensity: 6 5. Fall Risk: Dizziness: Y Needs help standing or walking: N Fallen in the last 3 months: N Fall risk comments: 6. Patient on Blood Thinner: None 7. History of Hypertension: Y 8. Opioid Therapy greater than 6 weeks: Y Opiate Contract Signed: 10/02/15 9. Risk Assessment Tool Provided: low risk-0 10. Functional Assessment Tool: 11. Recreational Drug Use: Past greater than 3 mos Drug Type: MARIJUANA Tobacco Use: Former Smoker Tobacco Type: Cigarettes Amount or Packs/day: 1 How Many Years: 4 Alcohol Use: Yes Frequency: Weekly Quant: VODKA
== END ==
LOC: PAIN 06:47
DX: G40.909 Epilepsy, unspecified, not intractable, without status epilepticus (principal); F11.20 Opioid dependence, uncomplicated; G89.29 Other chronic pain; Z88.8 Allergy status to other drugs, medicaments and biological substances; Z79.899 Other long term (current) drug therapy